=== PATIENT | female | born 1950 | race Caucasian/White ===

== ENCOUNTER → 2017-08-16 | Outpatient (CLI) | payer MEDICARE, BC ==
[~2017-08-16] MED LIST: ALBU90OI6 INH; ALEVE220 MG PO; CALCIUM PO; CETIRIZINE 10 MG; CHOL10002 PO; CITA20 PO; CYCL0.05OP BOTHEYES; CYCL10 PO; DIAZ5 PO; DULO60 PO; GABA300 PO; Glucosamine Ch1 EAC4 PO; HYDACE10B; HYDACE5325 PO; HYDSUL200 PO; Hair, Skin & N1 EACH PO; Imitrex100 MG PO; K-Dur 20 meq T20 MEQ PO; L-METHYLFOLATE15 MG PO; MAGOXI400 PO; Milk Of Ma400 MG/5 M PO; Multiple Vitam1 EAC1 PO; NAPR500ERA PO; Nitrostat0.4 MG SL; OMEP20ER; OMEPRAZOLE MAGN20 MG PO; OSTEO BI-FLEX1 EAC2 PO; OXYC10TA19 PO; OXYC40ER; OXYC40ER PO; OXYC5 PO; OXYC80ER PO; Omeprazole20 M1 PO; PENVK500 PO; PRED20 PO; ROFE25; Reclast 55 MG/100 M IV; SENN187 PO; STOOL SOFTENER1 EAC1 PO; Senna-Gen8.6 MG PO; Suphedrine30 MG PO; Synthroid25 MCG PO; TEMA30 PO; TIZANIDINE HCL4 MG PO; TUMERIC PO; VITAMIN D10000 UNIT PO; ZOLP12.5 PO; Zanaflex4 M1 PO; [UNRECOGNIZED DRUG - REMARK]
[2017-08-16 12:30] LABS: Alanine Aminotransfer (ALT/SGP 23 U/L (12-78); Albumin, Blood 3.7 g/dL (3.4-5.0); Albumin/Globulin Ratio 1.1 (0.8-1.8); Alk Phos 112 U/L (50-136); Anion Gap 8 mmol/L (6-16); Aspartate Aminotrans (AST/SGOT 24 U/L (12-37); Bilirubin, Total 0.4 mg/dL (0.1-1.0); Blood Urea Nitrogen 23 mg/dL (8-24); CO2, Blood 28 mmol/L (21-32); Calcium, Blood 9.1 mg/dL (8.5-10.1); Chloride, Blood 104 mmol/L (98-108); Creatinine, Blood 0.88 mg/dL (0.40-1.00); Globulin, Blood 3.3 g/dL (2.2-4.0); Glomerular Filtration Rate >60 (60-); Glucose, Blood 95 mg/dL (70-99); Potassium, Blood 4.3 mmol/L (3.5-5.5); Sodium, Blood 140 mmol/L (136-145)
== END | disposition home or self-care (01) ==
LOC: LAB SHORT 11:05 → LAB 11:05
PROVIDERS: Internal Medicine Hematology & Oncology
DX: M81.0 Age-related osteoporosis without current pathological fracture (principal)
CPT/HCPCS: 80053

== ENCOUNTER → 2018-03-30 | Outpatient (CLI) | payer MEDICARE, BC ==
[~2018-03-30] MED LIST changes: +ATOR20 PO; +Aspirin EC81 MG PO; +DULO30 PO; +FOLI1 PO; +Ferrous Sulfat325 M2 PO; +Ginkgo Biloba40 MG PO; +METO25ER PO; +NITR.4SL SL; -TUMERIC PO; +TURMERIC PO
[2018-03-30 17:10] LABS: Adenovirus F 40/41 Not Detected (NOT DETECT); Astrovirus Not Detected (NOT DETECT); Campylobacter Sp Not Detected (NOT DETECT); Cryptosporidium Not Detected (NOT DETECT); Cyclospora Cayetanensis Not Detected (NOT DETECT); E. Coli O157 Not Detected (NOT DETECT); Entamoeba Histolytica Not Detected (NOT DETECT); Enteroaggregative E. coli-EAEC Not Detected (NOT DETECT); Enteropathogenic E. coli-EPEC Not Detected (NOT DETECT); Enterotoxigenic E. coli-ETEC Not Detected (NOT DETECT); Giardia Lamblia Not Detected (NOT DETECT); Norovirus GI/GII Not Detected (NOT DETECT); Plesiomonas Shigelloides Not Detected (NOT DETECT); Rotavirus A Not Detected (NOT DETECT); Salmonella Sp Not Detected (NOT DETECT); Sapovirus Not Detected (NOT DETECT); Shiga Toxin-prod E. coli-STEC Not Detected (NOT DETECT); Shigella/Enteroin E. coli-EIEC Not Detected (NOT DETECT); Vibrio Cholerae Not Detected (NOT DETECT); Vibrio Sp Not Detected (NOT DETECT); Yersinia Enterocolitica Not Detected (NOT DETECT)
== END ==
LOC: LAB SHORT 13:52 → LAB 13:52 → LAB FUT 03-28 14:55
PROVIDERS: Internal Medicine
DX: R19.7 Diarrhea, unspecified (principal); D51.9 Vitamin B12 deficiency anemia, unspecified; R73.9 Hyperglycemia, unspecified
CPT/HCPCS: 87507

== ENCOUNTER 2018-04-03 08:23 | Day surgery (SDC) | payer MEDICARE, BC ==
[~2018-04-03] VITALS: Ht 167.6 cm; Wt 85.0 kg
[~2018-04-03 08:23] MED LIST changes: -ATOR20 PO; -Aspirin EC81 MG PO; -FOLI1 PO; -Ferrous Sulfat325 M2 PO; -Ginkgo Biloba40 MG PO; -METO25ER PO; -NITR.4SL SL
[2018-04-03] MEDS ORDERED: FOLI1 PO (08:49)
[2018-04-03] MEDS ORDERED: Ferrous Sulfat325 M2 PO (08:51)
[2018-04-03] MEDS ORDERED: NITR.4SL SL (08:52)
[2018-04-03] MEDS ORDERED: Ginkgo Biloba40 MG PO (08:57)
[2018-04-03] MEDS ORDERED: METO25ER PO (10:59)
[2018-04-03] MEDS ORDERED: ATOR20 PO (10:59)
[2018-04-03] MEDS ORDERED: Aspirin EC81 MG PO (10:59)
--- NOTE | 2018-04-03 12:40 | NUR ---
RIGHT RADIAL SITE SOFT AND NON-TENDER, SPLINT IN PLACE. IV DC'D, CATH INTACT. PT DC'D HOME WITH . OUT TO CAR VIA W/C.
== END 2018-04-03 12:40 | disposition home or self-care (01) ==
LOC: MHTC 08:23
DX: I25.10 Atherosclerotic heart disease of native coronary artery without angina pectoris (principal); J45.909 Unspecified asthma, uncomplicated; K21.9 Gastro-esophageal reflux disease without esophagitis; M79.7 Fibromyalgia; G47.411 Narcolepsy with cataplexy; E66.9 Obesity, unspecified; M06.9 Rheumatoid arthritis, unspecified; Z79.899 Other long term (current) drug therapy; Z68.30 Body mass index [BMI] 30.0-30.9, adult
CPT/HCPCS: 93458; 99152; C1769; C1894; J1644; J2250; J3010; J7030; Q9967

== ENCOUNTER 2019-08-13 09:15 | Day surgery (SDC) | payer MEDICARE, BC ==
[~2019-08-13] VITALS: Ht 167.6 cm; Wt 80.4 kg
[~2019-08-13 09:15] MED LIST changes: +ATOR20 PO; +Aspirin EC81 MG PO; +CALCIUM CIT 311 EACH PO; -CALCIUM PO; +FOLI1 PO; +Ferrous Sulfat325 M2 PO; +Ginkgo Biloba40 MG PO; +METO25ER PO; +NITR.4SL SL
[2019-08-13] MEDS ORDERED: EXCEDRIN EXTRA1 EACH PO (10:57)
--- NOTE | 2019-08-13 11:36 | NUR ---
Ambulatory in Day Surgery History, Chart, Medications and Allergies reviewed before start of procedure. Patient reports completing Chlorhexadine shower X2 prior to admission to hospital.Surgical site prepped with 2% Chlorhexidine cloth wipe. Patient States Post-Procedure ride home has been arranged.STUDENT NURSE ASSISTING IN CARE, AGREE WITH HIS CARE AND CHARTING.
--- NOTE | 2019-08-13 12:59 | NUR ---
REPORT FROM SHAYY HELLER RN. PT AWAKE AND ORIENTED, PROVIDED FOOD AND FLUID, SITTING IN HIGH SEMI PYLE POSITION. DRESSINGS TO LEFT ARM X2 AND R ARM X1 ARM WITH GAUZE AND CLEAR DRESSINGS ARE CDI. WILL CONTINUE TO MONITOR.
--- NOTE | 2019-08-13 13:20 | NUR ---
Dressing to procedure site clean, dry, intact with no visible drainage, swelling, erythema or bruising noted. Discharge instructions reviewed with patient. Patient verbalizes understanding. Copy given to patient to take home. Patient States Post-Procedure ride home has been arranged. Discharged via wheelchair to private car for ride home. ALL BELONINGS RETURNED TO PATIENT.
--- NOTE | 2019-08-14 12:33 | NUR ---
08/14/19 1233 Lanre Palomo VERIFICATION AMEND GHAZAL NGUYEN
== END 2019-08-13 23:00 | disposition home or self-care (01) ==
LOC: ORSCMMR 09:15 → ORD 10:45 → ORSCMMR 10:45 → ORD 11:15 → ORSCMMR 23:00
PROVIDERS: Surgery
PROC: 0JBF0ZZ Excision of Left Upper Arm Subcutaneous Tissue and Fascia, Open Approach (ICD-10-PCS; principal; 2019-08-13 10:45)
PROC: 0JBH0ZZ Excision of Left Lower Arm Subcutaneous Tissue and Fascia, Open Approach (ICD-10-PCS; principal; 2019-08-13 10:45)
PROC: 0JBG0ZZ Excision of Right Lower Arm Subcutaneous Tissue and Fascia, Open Approach (ICD-10-PCS; principal; 2019-08-13 10:45)
DX: D17.9 Benign lipomatous neoplasm, unspecified (principal); J45.909 Unspecified asthma, uncomplicated; Z79.899 Other long term (current) drug therapy
CPT/HCPCS: 88304; A9270-GY; J0690; J1100; J2250; J2405; J2704; J7120

== ENCOUNTER → 2021-09-23 | Outpatient (CLI) | payer MEDICARE, BC ==
[~2021-09-23] MED LIST changes: +EXCEDRIN EXTRA1 EACH PO
[2021-09-23 10:54] LABS: BASOPHILS ABSOLUTE AUTO 0.03 K/mm3 (0.00-0.23); BASOPHILS PERCENT AUTO 1 % (0-2); EOSINOPHILS ABSOLUTE AUTO 0.39 K/mm3 (0.00-0.68); EOSINOPHILS PERCENT AUTO 8 % (0-6); Hematocrit 38.5 % (33.0-51.0); Hemoglobin 12.5 g/dL (11.5-16.0); IMMATURE GRAN ABSOLUTE AUTO 0.01 K/mm3 (0.00-0.10); IMMATURE GRAN PERCENT AUTO 0 % (0-1); LYMPHOCYTES ABSOLUTE AUTO 1.76 K/mm3 (0.84-5.20); LYMPHOCYTES PERCENT AUTO 34 % (21-46); MONOCYTES ABSOLUTE AUTO 0.61 K/mm3 (0.16-1.47); MONOCYTES PERCENT AUTO 12 % (4-13); Mean Corpuscular HGB 30.1 pg (26.0-34.0); Mean Corpuscular HGB Conc 32.5 g/dL (31.5-36.5); Mean Corpuscular Volume 93 fL (80-100); Mean Platelet Volume 10.7 fL (9.1-12.4); NEUTROPHILS ABSOLUTE AUTO 2.38 K/mm3 (1.96-9.15); NEUTROPHILS PERCENT AUTO 46 % (41-73); Platelet Count 266 K/mm3 (150-400); RDW Coefficient Variation 12.4 % (11.7-14.2); RDW Standard Deviation 42.3 fL (35.1-46.3); Red Blood Cell Count 4.15 M/mm3 (3.80-5.20); White Blood Cell Count 5.18 K/mm3 (4.00-11.30)
[2021-09-23 11:53] LABS: Alanine Aminotransfer (ALT/SGP 25 U/L (12-78); Albumin, Blood 3.4 g/dL (3.4-5.0); Albumin/Globulin Ratio 1.1 (0.8-1.8); Alk Phos 62 U/L (50-136); Anion Gap 7 mmol/L (6-16); Aspartate Aminotrans (AST/SGOT 23 U/L (12-37); Bilirubin, Total 0.3 mg/dL (0.1-1.0); Blood Urea Nitrogen 16 mg/dL (8-24); Bun/Creatinine Ratio 22.3 (12.0-20.0); CO2, Blood 24 mmol/L (21-32); Calcium, Blood 8.6 mg/dL (8.5-10.1); Chloride, Blood 109 mmol/L (98-108); Cholesterol 129 mg/dL (50-200); Creatinine, Blood 0.72 mg/dL (0.40-1.00); Globulin, Blood 3.2 g/dL (2.2-4.0); Glomerular Filtration Rate 90 (60-); Glucose, Blood 107 mg/dL (70-99); HDL Cholesterol 65 mg/dL (>39); LDL/HDL RATIO 0.8; Low Density Lipoprotein Chol 54 mg/dL (0-110); Potassium, Blood 4.2 mmol/L (3.5-5.5); Sodium, Blood 140 mmol/L (136-145); Total Protein, Blood 6.6 g/dL (6.4-8.2); Triglycerides 48 mg/dL (30-160); Very Low Density Lipoprot Chol 9 mg/dL (6-32)
== END | disposition home or self-care (01) ==
LOC: LAB SHORT 09:03 → LAB 09:03
PROVIDERS: Internal Medicine
DX: E03.9 Hypothyroidism, unspecified (principal); E55.9 Vitamin D deficiency, unspecified; E78.5 Hyperlipidemia, unspecified; R73.9 Hyperglycemia, unspecified; I10 Essential (primary) hypertension
CPT/HCPCS: 80053; 80061; 83036; 84443; 85025

== ENCOUNTER 2022-07-09 18:53 | Emergency (ER) | payer MEDICARE, BC ==
[~2022-07-09] VITALS: Ht 167.6 cm; Wt 81.2 kg
[2022-07-09 19:05] VITALS: BP 141/93
[2022-07-09 19:39] LABS: Source, Urine Clean Catch
[2022-07-09 19:59] LABS: Appearance, Urine Clear (Clear); Bilirubin, Urine Neg (Neg); Blood, Urine 3+ (Neg); Color, Urine Yellow (P-Yellow); Glucose Qualitative, Urine Neg (Neg); Ketones, Urine Neg (Neg); Leukocyte Esterase, Urine Neg (Neg); Nitrite, Urine Neg (Neg); Protein, Urine Neg (Neg); Urobilinogen, Urine NORM (Normal)
[2022-07-09 20:24] LABS: Bacteria Few /hpf; Red Blood Cells, Urine TNTC /hpf (0-2); Squamous Epithelial Cells Few /hpf (Few); White Blood Cells, Urine 0-2 /hpf (0-5)
== END 2022-07-09 21:50 | disposition home or self-care (01) ==
LOC: ER 18:53
PROVIDERS: Student in an Organized Health Care Education/Training Program
DX: R35.0 Frequency of micturition (principal); R31.9 Hematuria, unspecified; M06.9 Rheumatoid arthritis, unspecified
CPT/HCPCS: 81001; 99283

== ENCOUNTER 2023-11-01 06:10 | Inpatient (IN) | payer MEDICARE, BC ==
[2023-11-01] VITALS (16 sets, daily range): BP systolic 119–158; BP diastolic 64–96
[~2023-11-01] VITALS: Ht 167.6 cm; Wt 85.0 kg
[~2023-11-01 06:10] MED LIST changes: +CELE200 PO; +EUTHYROX50 MCG PO; +EXCEDRIN MIGRAINE PO; +SUMA25 PO; +TIZA4 PO; -Zanaflex4 M1 PO
[2023-11-01] MEDS ORDERED: Gabapentin 300 MG Cap PO ONE (06:25)
[2023-11-01] MEDS ORDERED: Heparin Sodium,Porcine 5,000 UNIT/0.5 ML SDV SC ONE (06:25)
[2023-11-01] MEDS ORDERED: Lactated Ringer's 1,000 ML IV SCH ×2 (06:25→11:15)
[2023-11-01] MEDS ORDERED: Acetaminophen 500 MG Tab PO SCH (06:25)
[2023-11-01] MEDS ORDERED: Piperacillin/Tazobactam Sod 3.375 GM in NS 100 ML IV ONE (06:25)
[2023-11-01] MEDS ORDERED: Midazolam HCl 1MG / ML 2ML Vial ONE (07:08)
[2023-11-01] MEDS ORDERED: FentaNYL Citrate 50 MCG/ML 2 ML Injection ONE ×3 (07:08→11:46)
[2023-11-01] MEDS ORDERED: Rocuronium Bromide 10 MG/ML 5ML Injection IV ONE ×2 (07:09→07:10)
[2023-11-01] MEDS ORDERED: propofoL 20 ML IV ONE (07:09)
[2023-11-01] MEDS ORDERED: Lidocaine HCl 2% 20 ML MDV ONE (07:09)
[2023-11-01] MEDS ORDERED: Bupivacaine 0.5% HCl 5 MG/ML 30MLVIAL ONE (07:14)
[2023-11-01 07:26] LABS: BASOPHILS ABSOLUTE AUTO 0.02 K/mm3 (0.00-0.23); BASOPHILS PERCENT AUTO 0 % (0-2); EOSINOPHILS ABSOLUTE AUTO 0.15 K/mm3 (0.00-0.68); EOSINOPHILS PERCENT AUTO 2 % (0-6); Hematocrit 36.4 % (33.0-51.0); Hemoglobin 12.7 g/dL (11.5-16.0); IMMATURE GRAN ABSOLUTE AUTO 0.02 K/mm3 (0.00-0.10); IMMATURE GRAN PERCENT AUTO 0 % (0-1); LYMPHOCYTES ABSOLUTE AUTO 1.72 K/mm3 (0.84-5.20); LYMPHOCYTES PERCENT AUTO 26 % (21-46); MONOCYTES ABSOLUTE AUTO 0.82 K/mm3 (0.16-1.47); MONOCYTES PERCENT AUTO 12 % (4-13); Mean Corpuscular HGB 31.8 pg (26.0-34.0); Mean Corpuscular HGB Conc 34.9 g/dL (31.5-36.5); Mean Corpuscular Volume 91 fL (80-100); Mean Platelet Volume 9.6 fL (9.1-12.4); NEUTROPHILS ABSOLUTE AUTO 4.02 K/mm3 (1.96-9.15); NEUTROPHILS PERCENT AUTO 60 % (41-73); Platelet Count 286 K/mm3 (150-400); RDW Standard Deviation 40.1 fL (35.1-46.3); White Blood Cell Count 6.75 K/mm3 (4.00-11.30)
[2023-11-01 07:44] LABS: Bun/Creatinine Ratio 17.8 (12.0-20.0); Creatinine, Blood 0.73 mg/dL (0.40-1.00); Potassium, Blood 3.2 mmol/L (3.5-5.5)
[2023-11-01] MEDS ORDERED: ePHEDrine Sulfate 50 MG/ML 1ML Injection ONE (08:19)
[2023-11-01] MEDS ORDERED: Indocyanine Green 25 MG Vial ONE (08:26)
[2023-11-01] MEDS ORDERED: Dexamethasone Sod Phos 10 MG/ML 1ML VIAL ONE (08:38)
[2023-11-01] MEDS ORDERED: Ondansetron HCl 2 MG / ML 2ML Vial ONE (08:38)
[2023-11-01] MEDS ORDERED: HYDROmorphone HCl/Pf 1MG SYR ONE (09:00)
--- NOTE | 2023-11-01 09:00 | NUR ---
11/01/23 0859 Shaina Davidson ZOSYN 3.375 G WAS GIVEN BY AT 0741.
[2023-11-01] MEDS ORDERED: Sugammadex Sodium 200 MG/2ML SDV (100 MG/ML) ONE (10:52)
[2023-11-01] MEDS ORDERED: Ketorolac Tromethamine 30mg Vial ONE (10:52)
[2023-11-01] MEDS ORDERED: Acetaminophen 325 MG TABLET PO PRN (11:10)
[2023-11-01] MEDS ORDERED: OxyCODONE HCL 5 MG TAB PO PRN (11:10)
[2023-11-01] MEDS ORDERED: SUMAtriptan succinate 50 MG Tab PO PRN (11:15)
[2023-11-01] MEDS ORDERED: HYDROmorphone HCl/Pf 1MG SYR IV PRN (11:15)
[2023-11-01] MEDS ORDERED: Ondansetron HCl 2 MG / ML 2ML Vial IV PRN (11:15)
[2023-11-01] MEDS ORDERED: TiZANidine HCl 4 MG Tab PO PRN (11:20)
[2023-11-01] MEDS ORDERED: Indocyanine Green 25 MG Vial IV ONE (14:55)
[2023-11-01] MEDS ORDERED: Piperacillin/Tazobactam Sod 3.375 GM in NS 100 ML IV SCH (16:00)
[2023-11-01] MEDS ORDERED: Pregabalin 50 MG Capsule PO SCH (16:00)
--- NOTE | 2023-11-01 16:23 | NUR ---
SHIFT SUMMARY POD 0 R HEMICOLECTOMY. ABD X4 LAP SITES WITH WOUND GLUE ARE CDI. PT UP WITH 1 SBA TO RESTROOM. SLOWLY NOEL CLEAR LIQS. DENIES FLATUS, BUT REPORTS SHE CAN FEEL "PERISTALSIS". IVF INFUSING PER ORDERS. 1 BERNARDA/IV DILAUDID FOR PAIN MANAGEMENT. POST OP VSS. CALL LIGHT WITHIN REACH. FAMILY AT BEDSIDE FOR SUPPORT.
[2023-11-01] MEDS ORDERED: Omeprazole 20 MG CapCR PO SCH (21:00)
[2023-11-01] MEDS ORDERED: Zolpidem Tartrate 5 MG Tab PO PRN (21:00)
[2023-11-01] MEDS ORDERED: Docusate Sodium 100 MG Cap PO SCH (21:00)
--- NOTE | 2023-11-02 04:49 | NUR ---
SHIFT SUMMARY POD 1 R HEMICOLECTOMY PT WAS RESTLESS DURING THE NIGHT. PAIN WAS MANAGED PER EMAR. TOLERATING CLEAR LIQUIDS, VOIDING WELL. PT REPORTS NOT PASSING GAS, BUT CAN FEEL MOVEMENT IN HER BOWELS. PT HAS X4 LAP SITES CLOSED WITH WG, C/D/I. VSS. NO OTHER CONCERNS AT THIS BERE, CALL LIGHT WITHIN REACH
[2023-11-02 04:52] VITALS: BP 141/70
[2023-11-02 05:31] LABS: BASOPHILS ABSOLUTE AUTO 0.02 K/mm3 (0.00-0.23); BASOPHILS PERCENT AUTO 0 % (0-2); EOSINOPHILS ABSOLUTE AUTO 0.04 K/mm3 (0.00-0.68); EOSINOPHILS PERCENT AUTO 0 % (0-6); Hematocrit 36.4 % (33.0-51.0); IMMATURE GRAN ABSOLUTE AUTO 0.03 K/mm3 (0.00-0.10); IMMATURE GRAN PERCENT AUTO 0 % (0-1); LYMPHOCYTES ABSOLUTE AUTO 1.99 K/mm3 (0.84-5.20); LYMPHOCYTES PERCENT AUTO 19 % (21-46); MONOCYTES ABSOLUTE AUTO 1.07 K/mm3 (0.16-1.47); MONOCYTES PERCENT AUTO 10 % (4-13); Mean Corpuscular HGB 31.3 pg (26.0-34.0); Mean Corpuscular Volume 95 fL (80-100); Mean Platelet Volume 9.4 fL (9.1-12.4); NEUTROPHILS ABSOLUTE AUTO 7.39 K/mm3 (1.96-9.15); NEUTROPHILS PERCENT AUTO 70 % (41-73); Platelet Count 257 K/mm3 (150-400); RDW Standard Deviation 41.7 fL (35.1-46.3); Red Blood Cell Count 3.84 M/mm3 (3.80-5.20); White Blood Cell Count 10.54 K/mm3 (4.00-11.30)
[2023-11-02 05:57] LABS: Bun/Creatinine Ratio 13.9 (12.0-20.0); Calcium, Blood 8.3 mg/dL (8.5-10.1); Creatinine, Blood 0.72 mg/dL (0.40-1.00); Potassium, Blood 3.5 mmol/L (3.5-5.5)
[2023-11-02 07:38] VITALS: BP 140/75
[2023-11-02] MEDS ORDERED: DULoxetine HCL 30 MG Cap DR PO SCH (09:00)
[2023-11-02] MEDS ORDERED: Atorvastatin 10 MG Tab PO SCH (09:00)
[2023-11-02] MEDS ORDERED: Metoprolol Succinate 25 MG TABCR PO SCH (09:00)
[2023-11-02 15:09] VITALS: BP 150/72
[2023-11-02 19:29] VITALS: BP 95/47
--- NOTE | 2023-11-02 19:44 | NUR ---
SHIFT SUMMARY POD1 R DAYO COLECTOMY, A/OX4, VSS, TOLERATING DIET, MULTIPLE BM THIS SHIFT, AMBULATES TO THE BATHROOM INDEPENDENTLY, BM WERE MOSTLY DARK BUT SLIGHT AMOUNT OF LIGHTENING UP T/O THE DAY. NO ACUTE EVENTS THIS SHIFT, CALL LIGHT IN REACH.
[2023-11-03 05:03] VITALS: BP 134/72
--- NOTE | 2023-11-03 05:20 | NUR ---
SHIFT SUMMARAY POD 2 R HEMICOLECTOMY PT ABLE TO REST DURING THE NIGHT. PAIN MANAGED PER EMAR. TOLERATING PO INTAKE. VOIDING, PASSIGN GAS AND HAVING BM'S. PT IND WITH GOING TO THE BATHROOM. LAP SITES TO THE ABD CLOSED WITH WG, C/D/I. VSS. NO OTHER CONCERNS AT THIS TIME, CALL LIGHT WITHIN REACH
[2023-11-03 07:37] VITALS: BP 138/60
[2023-11-03] MEDS ORDERED: OXYC5 PO (08:25)
[2023-11-03] MEDS ORDERED: DOCU100 PO (08:26)
--- NOTE | 2023-11-03 11:03 | NUR ---
DISCHARGE SUMMARY POD2 LAP R DAYO COLECTOMY, A/OX4, VSS, TOLERATING PO, PAIN MANAGED PER EMAR, MULTIPLE BM'S OVER NIGHT, ABD LAP SITES ALL C/D/I, ABLE TO GET UP ND MOVE ABOUT IN HER ROOM ND TO THE BATHROOM INDEPENDENTLY. DISCUSSED DISCHARGE INSTRUCCTIONS WITH HER INCLUDING HOME CARE, MEDICATIONS, AND FOLLOW UP APPOINTMENTS, REMOVED IV ACCESS X2 WHILE DISCUSSING DC INSTRUCTIONS, NO QUESTIONS AT THIS TIME, ESCORTED OUT VIA WC TO PRIVATE AUTO WITH HER DAUGTER TO GO HOME.
== END 2023-11-03 10:45 | disposition home or self-care (01) | DRG 330 ==
LOC: MEDS 06:10 → SURS 06:10 → PRE IP 07:30 → SURS 12:02
PROVIDERS: ADMIT Surgery
PROC: 0DNH4ZZ Release Cecum, Percutaneous Endoscopic Approach (ICD-10-PCS; 2023-11-01)
PROC: 0DXU4ZW Transfer Omentum to Abdominal Region, Percutaneous Endoscopic Approach (ICD-10-PCS; 2023-11-01)
PROC: 0DQL4ZZ Repair Transverse Colon, Percutaneous Endoscopic Approach (ICD-10-PCS; 2023-11-01)
PROC: 8E0W4CZ Robotic Assisted Procedure of Trunk Region, Percutaneous Endoscopic Approach (ICD-10-PCS; 2023-11-01)
PROC: 0DTF4ZZ Resection of Right Large Intestine, Percutaneous Endoscopic Approach (ICD-10-PCS; principal; 2023-11-01 07:30)
DX: K56.2 Volvulus (principal); D84.821 Immunodeficiency due to drugs; K65.4 Sclerosing mesenteritis; K91.71 Accidental puncture and laceration of a digestive system organ or structure during a digestive system procedure; L76.32 Postprocedural hematoma of skin and subcutaneous tissue following other procedure; K66.0 Peritoneal adhesions (postprocedural) (postinfection); M06.9 Rheumatoid arthritis, unspecified; R13.10 Dysphagia, unspecified; K21.9 Gastro-esophageal reflux disease without esophagitis; I25.10 Atherosclerotic heart disease of native coronary artery without angina pectoris; G43.909 Migraine, unspecified, not intractable, without status migrainosus; K58.9 Irritable bowel syndrome, unspecified; Z79.82 Long term (current) use of aspirin; Z90.49 Acquired absence of other specified parts of digestive tract; Z79.890 Hormone replacement therapy; Z79.899 Other long term (current) drug therapy
CPT/HCPCS: 36415; 80048; 85025; 93005; 93010; 94762; A9270; J1100; J1170; J1644; J1885; J2250; J2405; J2543; J2704; J3010; J7120

== ENCOUNTER → 2023-11-29 | Outpatient (CLI) | payer MEDICARE, BC ==
[~2023-11-29] MED LIST changes: +DOCU100 PO
[2023-11-30 18:22] LABS: Adenovirus F 40/41 Not Detected (NOT DETECT); Astrovirus Not Detected (NOT DETECT); Campylobacter Sp Not Detected (NOT DETECT); Cryptosporidium Not Detected (NOT DETECT); Cyclospora Cayetanensis Not Detected (NOT DETECT); E. Coli O157 Not Detected (NOT DETECT); Entamoeba Histolytica Not Detected (NOT DETECT); Enteroaggregative E. coli-EAEC Not Detected (NOT DETECT); Enteropathogenic E. coli-EPEC Not Detected (NOT DETECT); Enterotoxigenic E. coli-ETEC Not Detected (NOT DETECT); Giardia Lamblia Not Detected (NOT DETECT); Norovirus GI/GII Not Detected (NOT DETECT); Plesiomonas Shigelloides Not Detected (NOT DETECT); Rotavirus A Not Detected (NOT DETECT); Salmonella Sp Not Detected (NOT DETECT); Sapovirus Not Detected (NOT DETECT); Shiga Toxin-prod E. coli-STEC Not Detected (NOT DETECT); Shigella/Enteroin E. coli-EIEC Not Detected (NOT DETECT); Vibrio Cholerae Not Detected (NOT DETECT); Vibrio Sp Not Detected (NOT DETECT); Yersinia Enterocolitica Not Detected (NOT DETECT)
== END | disposition home or self-care (01) ==
LOC: LAB 14:50 → LAB SHORT 14:50
PROVIDERS: Internal Medicine
DX: R19.7 Diarrhea, unspecified (principal)
CPT/HCPCS: 87324; 87507

== ENCOUNTER 2024-02-21 19:16 | Emergency (ER) | payer OTHER, MEDICARE, BC ==
[~2024-02-21] VITALS: Ht 167.6 cm; Wt 83.9 kg
[2024-02-21 20:38] VITALS: BP 196/92
[2024-02-21] MEDS ORDERED: RX Prepack 6 Tabs Oxycodone 5mg UD ONE (22:00)
[2024-02-21] MEDS ORDERED: Percocet 5-3251 EACH PO (22:08)
== END 2024-02-21 22:20 | disposition home or self-care (01) ==
LOC: ER 19:16
DX: S42.201A Unspecified fracture of upper end of right humerus, initial encounter for closed fracture (principal); W01.0XXA Fall on same level from slipping, tripping and stumbling without subsequent striking against object, initial encounter; Z79.899 Other long term (current) drug therapy
CPT/HCPCS: 29105; 73030; 99283-25; A9270

== ENCOUNTER → 2024-04-20 | Outpatient (CLI) | payer MEDICARE, BC ==
[~2024-04-20] MED LIST changes: +Percocet 5-3251 EACH PO
== END | disposition home or self-care (01) ==
LOC: LAB SHORT 12:48 → LAB 12:48
DX: R82.81 Pyuria (principal)
CPT/HCPCS: 87086